=== PATIENT | male | born 1965 | race Caucasian/White ===

== ENCOUNTER 2020-05-17 13:43 | Emergency (ER) | payer OTHER, SELFPAY ==
[~2020-05-17] VITALS: Ht 162.6 cm; Wt 102.1 kg
[2020-05-17 14:03] VITALS: BP_SYST 142
--- NOTE | 2020-05-17 14:06 | NUR ---
X-ray done at bedside as ordered by Dr. Louis Red. Patient tolerated the procedure well.
--- NOTE | 2020-05-17 14:07 | NUR ---
Patient to ER bed 5 to gown for evaluation. Side rails up. Report given to Sterling DAVIES.
--- NOTE | 2020-05-17 14:10 | NUR ---
Patient arrived in the ED c/o cough x 1 week, progressively getting worse. Denied any chest pain or shortness of breath. Denied any fevers, chills, nausea or vomiting. Patient is alert and oriented x4, respirations even and unlabored, speaking in full sentences, and ambulating with a steady gait. VSS, pain level 0/10. Informed of the approximate wait time. Instructed to notify ED staff for any changes in condition or worsening of symptoms while waiting to be seen by an ED provider. Patient verbalized understanding.
--- NOTE | 2020-05-17 14:11 | NUR ---
ER Dr. Payal Red at bedside examining patient.
[2020-05-17] MEDS ORDERED: PREDNISONE 20 MG TABLET PO ONE (14:15)
--- NOTE | 2020-05-17 14:20 | NUR ---
repair tech at bedside collecting blood specimen as ordered by Dr. Louis Red. Patient tolerated the procedure well.
--- NOTE | 2020-05-17 14:27 | NUR ---
Administered Prednisone PO as ordered by Dr. Louis Red. Patient tolerated the medications well. See eMAR for details.
[2020-05-17 14:36] LABS: BASOPHILS % (AUTO) 0.2 % (0.0-2.0); EOSINOPHILS # (AUTO) 0.1 K/uL (0.0-0.4); HEMATOCRIT 38.6 % (36-54); HEMOGLOBIN 13.5 g/dL (14.0-18.0); LYMPHOCYTES # (AUTO) 1.1 K/uL (1.0-5.5); LYMPHOCYTES % (AUTO) 15.4 % (20.5-51.5); MEAN CORPUSCULAR HEMOGLOBIN 31 pg (27-31); MEAN CORPUSCULAR HGB CONC 35 % (32-36); MEAN CORPUSCULAR VOLUME 90 fL (79.0-98.0); MONOCYTES # (AUTO) 0.8 K/uL (0.0-1.0); MONOCYTES % (AUTO) 11.1 % (1.7-9.3); NEUTROPHILS # (AUTO) 5.3 K/uL (1.8-7.7); NEUTROPHILS % (AUTO) 71.3 % (40.0-70.0); PLATELET COUNT (AUTO) 271 K/uL (130-430); RED BLOOD CELL COUNT(AUTO) 4.32 MIL/uL (4.2-6.2); RED CELL DISTRIBUTION WIDTH 12.6 % (9.0-15.0); WHITE BLOOD COUNT (AUTO) 7.5 K/uL (4.8-10.8)
--- NOTE | 2020-05-17 14:42 | NUR ---
Swabbed for Covid-[address] Louis Red. Patient tolerated the procedure well. Specimen dropped off at the lab.
[2020-05-17 14:46] LABS: ANION GAP 4 (5-15); CALCIUM 8.7 mg/dL (8.4-11.0); CHLORIDE 98 mmol/L (98-107); CREATININE 0.98 mg/dL (0.55-1.30); GFR AFRICAN AMERICAN 101 mL/min (>90); GLUCOSE 120 mg/dL (70-99); POTASSIUM 3.3 mmol/L (3.5-5.1); SODIUM SERUM 129 mmol/L (136-145); UREA NITROGEN, BLOOD 8 mg/dL (8-21)
[2020-05-17 14:55] LABS: ALANINE AMINOTRANSFERASE 24 U/L (12-78); ALBUMIN 3.1 g/dL (3.4-4.8); ASPARTATE AMINOTRANSFERASE 19 U/L (10-37); TOTAL BILIRUBIN 0.9 mg/dL (0.0-1.0)
--- NOTE | 2020-05-17 15:08 | NUR ---
REPORT RECEIVED FROM KEKE WREN
--- NOTE | 2020-05-17 15:08 | NUR ---
Report given and care transferred to KEKE Powell.
--- NOTE | 2020-05-17 15:45 | NUR ---
Patient resting quietly. No acute distress noted. Vital signs within normal range.
[2020-05-17 16:20] VITALS: BP_SYST 142
--- NOTE | 2020-05-17 16:22 | NUR ---
Patient given written and verbal discharge instructions and verbalizes understanding. ER MD discussed with patient the results and treatment provided. Patient in stable condition. ID arm band removed. Rx of PREDNISONE AND ZITHROMAX given. Patient educated on pain management and to follow up with PMD. Pain Scale 0/10. Opportunity for questions provided and answered. Medication side effect fact sheet provided.
== END 2020-05-17 16:20 | disposition home or self-care (01) ==
LOC: SED 13:43
DX: U07.1 COVID-19 (principal)
CPT/HCPCS: 71045; 80053; 83605; 83880; 84145; 84484; 85025; 99284; J7512; U0003